=== PATIENT | female | born 1960 | race Caucasian/White ===

== ENCOUNTER → 2016-12-16 | Outpatient (CLI) | payer BC ==
--- NOTE | 2016-12-16 10:34 | MM ---
Reason for exam: screening (asymptomatic). Last mammogram was performed 1 year and 1 month ago. History: Patient is postmenopausal. Family history of premenopausal breast cancer in sister at age 46. Benign stereotactic core biopsy of the left breast, December 21, 2004. Took hormonal contraceptives for 2 years beginning at age 21. Physical Findings: A clinical breast exam by your physician is recommended on an annual basis and results should be correlated with mammographic findings. MG Screening Mammo w CAD Bilateral CC and MLO view(s) were taken. Prior study comparison: November 24, 2015, bilateral MG screening mammo w CAD. November 22, 2014, bilateral MG screening mammo w CAD. There are scattered fibroglandular densities. Finding: There are typically benign calcifications in the left breast. Previous mammotome biopsy in the left breast. No significant changes in finding since November 24, 2015 and November 22, 2014. ASSESSMENT: Benign, BI-RAD 2 RECOMMENDATION: Routine screening mammogram of both breasts in 1 year.
== END | disposition home or self-care (01) ==
LOC: RADMAMWWP 07:50
PROVIDERS: ATTEND Obstetrics & Gynecology
DX: Z12.31 Encounter for screening mammogram for malignant neoplasm of breast (principal)

== ENCOUNTER → 2018-01-12 | Outpatient (CLI) | payer BC ==
--- NOTE | 2018-01-13 10:43 | MM ---
Reason for exam: screening (asymptomatic). Last mammogram was performed 1 year and 1 month ago. History: Patient is postmenopausal. Family history of premenopausal breast cancer in sister at age 46. Benign stereotactic core biopsy of the left breast, December 21, 2004. Took hormonal contraceptives for 2 years beginning at age 21. Physical Findings: A clinical breast exam by your physician is recommended on an annual basis and results should be correlated with mammographic findings. MG Screening Mammo w CAD Bilateral CC and MLO view(s) were taken. Prior study comparison: December 16, 2016, bilateral MG screening mammo w CAD. November 24, 2015, bilateral MG screening mammo w CAD. The breast tissue is heterogeneously dense. This may lower the sensitivity of mammography. Previous mammotome biopsy in the left breast. No significant changes when compared with prior studies. ASSESSMENT: Benign, BI-RAD 2 RECOMMENDATION: Routine screening mammogram of both breasts in 1 year.
== END | disposition home or self-care (01) ==
LOC: RADMAMWWP 07:34
PROVIDERS: ATTEND Obstetrics & Gynecology
DX: Z12.31 Encounter for screening mammogram for malignant neoplasm of breast (principal)
CPT/HCPCS: 77067

== ENCOUNTER → 2019-04-27 | Outpatient (CLI) | payer BC ==
[2019-04-27 09:32] LABS: ALT 57 U/L (9-52); AST 40 U/L (14-36); African American GFR (CKD) >90 (>60 ml/min/1.73 sqM); Albumin 4.5 g/dL (3.5-5.0); Alkaline Phosphatase 97 U/L (38-126); Anion Gap 8 mmol/L; Blood Urea Nitrogen 15 mg/dL (7-17); Carbon Dioxide 28 mmol/L (22-30); Chloride 105 mmol/L (98-107); Cholesterol 198 mg/dL (<200); Glucose 105 mg/dL (74-99); HDL Cholesterol 63 mg/dL (40-60); LDL Cholesterol,Calculated 108 mg/dL (0-99); Potassium 4.8 mmol/L (3.5-5.1); Sodium 141 mmol/L (137-145); Total Bilirubin 0.5 mg/dL (0.2-1.3); Total Protein 7.5 g/dL (6.3-8.2); Triglycerides 133 mg/dL (<150)
[2019-04-27 09:34] LABS: HCT 41.7 % (34.0-46.0); HGB 14.1 gm/dL (11.4-16.0); MCH 31.1 pg (25.0-35.0); MCHC 33.8 g/dL (31.0-37.0); MCV 92.1 fL (80.0-100.0); Mean Platelet Volume 5.5; Platelet Count 229 k/uL (150-450); RBC 4.53 m/uL (3.80-5.40); RDW 12.5 % (11.5-15.5)
[2019-04-27 09:48] LABS: T4, Free (Free Thyroxine) 0.99 ng/dL (0.78-2.19)
--- NOTE | 2019-04-27 10:03 | BD ---
EXAMINATION TYPE: Axial Bone Density DATE OF EXAM: 04/27/2019 COMPARISON: Prior DEXA bone scan April 19, 2016 CLINICAL HISTORY: Postmenopausal female, disorder of bone. Height: 65 inches Weight: 198 pounds FRAX RISK QUESTIONS: Alcohol (3 or more units per day): no Family History (Parent hip fracture): no Glucocorticoids (More than 3mos): no (Ex: prednisone, prednisolone, methylprednisolone, dexamethasone, and hydrocortisone). History of Fracture in Adulthood: no Secondary Osteoporosis: 1. Type 1 Diabetes: no 2. Hyperthyroidism: no 3. Menopause before 45: no 4. Malnutrition: no 5. Chronic liver disease: no Rheumatoid Arthritis: no Current Tobacco Use: no RISK FACTORS HISTORY OF: Surgery to Spine/Hip(right/left)/Wrist (right/left): l5-s1 When: 2010 Family History of Osteoporosis: no Active: yes Diet low in dairy products/other sources of calcium: yes Postmenopausal woman: hysterectomy 2009 Take estrogen and/or progesterone medications: estrogen supplement How lon MEDICATIONS: Additional History: EXAM MEASUREMENTS: Bone mineral densitometry was performed using the [employer] System. Bone mineral density as measured about the Lumbar spine is: ----- L1-L4(G/cm2): 1.023 T Score Values are as follows: ----- L2: -0.9 ----- L3: -1.4 ----- L4: -1.2 ----- L1-L4: -1.3 Bone mineral density has: increased 0.9 % since study of: 04.19.2016 Bone mineral density about the R hip (g/cm2): 0.769 Bone mineral density about the L hip (g/cm2): 0.852 T Score values are as follows: -----R Neck: -1.9 -----L Neck: -1.3 -----R Total: -0.8 -----L Total: -0.8 Bone mineral density has: decreased -2.2 % since study of: 04.19.2016 IMPRESSION: Osteopenia (T Score between -2.5 and -1). There is slightly increased risk of fracture and the patient may be considered for treatment. Re-Screen 2-5 years. NOTE: T-SCORE=SD OF THE YOUNG ADULT MEAN.
== END | disposition home or self-care (01) ==
LOC: RADBDWWP 07:59
PROVIDERS: ATTEND Obstetrics & Gynecology
DX: M85.80 Other specified disorders of bone density and structure, unspecified site (principal); Z13.220 Encounter for screening for lipoid disorders; Z13.1 Encounter for screening for diabetes mellitus; I10 Essential (primary) hypertension
CPT/HCPCS: 36415; 77080; 80053; 80061; 84439; 84443; 84479; 85027

== ENCOUNTER → 2019-04-30 | Outpatient (CLI) | payer BC ==
--- NOTE | 2019-05-02 09:20 | MM ---
Reason for exam: screening (asymptomatic). Last mammogram was performed 1 year and 4 months ago. History: Patient is postmenopausal. Family history of premenopausal breast cancer in sister at age 46. Benign stereotactic core biopsy of the left breast, December 21, 2004. Took hormonal contraceptives for 2 years beginning at age 21. Physical Findings: A clinical breast exam by your physician is recommended on an annual basis and results should be correlated with mammographic findings. MG 3D Screening Mammo W/Cad Bilateral CC and MLO view(s) were taken. Prior study comparison: January 12, 2018, bilateral MG screening mammo w CAD. December 16, 2016, bilateral MG screening mammo w CAD. There are scattered fibroglandular densities. Previous mammotome biopsy in the left breast. No significant changes when compared with prior studies. ASSESSMENT: Negative, BI-RAD 1 RECOMMENDATION: Routine screening mammogram of both breasts in 1 year.
== END | disposition home or self-care (01) ==
LOC: RADMAMWWP 16:33
PROVIDERS: ATTEND Obstetrics & Gynecology
DX: Z12.31 Encounter for screening mammogram for malignant neoplasm of breast (principal); Z80.3 Family history of malignant neoplasm of breast
CPT/HCPCS: 77063; 77067

== ENCOUNTER → 2019-07-05 | Outpatient (CLI) | payer BC ==
--- NOTE | 2019-07-05 13:10 | CT ---
EXAMINATION TYPE: CT abdomen pelvis wo con DATE OF EXAM: 07/05/2019 COMPARISON: None HISTORY: 58-year-old female Bilateral flank pain, history of stones CT DLP: 1024.9 mGycm. Automated exposure control for dose reduction was used. TECHNIQUE: Contiguous axial scanning of the abdomen and pelvis without IV contrast. Coronal and sagit hernan reconstructions performed. FINDINGS: Heart normal size without pericardial effusion. Some stringy atelectasis at the left base without ple ural effusion. Small hiatal hernia. Liver is borderline in size at 17.5 cm. Otherwise, noncontrast appearance of the liver, gallbladder, adrenal glands, spleen, and pancreas shows no gross abnormal mobility. Clustered calcifications central lower pole left kidney with aggregate dimension 8 x 6 mm. A couple a dditional adjacent calculi measure up to 3 mm. Punctate 2 mm nonobstructive left lower pole renal calculus. Possible tiny 2 mm distal right ureteral calculus, axial image 139. No hydronephrosis. No dilated small bowel, free fluid, or free air. No mesenteric or retroperitoneal lymphadenopathy. Normal appendix. Mild to moderate stool burden. No pericolonic inflammatory change. Bladder is partially distended. Uterus surgically absent. Neither ovary clearly identified. Multiple pelvic phleboliths. Bulging laxity of the levator ani musculature. No abnormal fluid collection in th e pelvis or pelvic lymphadenopathy. Bones: Stellate sclerotic focus right side of the sacrum measures 1.4 cm with overall benign appearan ce, probable bone island. Similar smaller 9 mm focus right iliac bone. Mild facet arthropathy lower l umbar spine. IMPRESSION: 1. Clustered, centrally located nonobstructive right lower pole renal calculi with aggregate dimensi on up to 8 x 6 cm and a couple additional adjacent nonobstructive 3 mm right renal calculi. 2. Difficult to exclude a tiny punctate 2 mm distal right ureteral calculus. No hydronephrosis. 3. Additional tiny 2 mm nonobstructive left lower pole renal calculus. 4. Pelvic floor relaxation. Status post hysterectomy.
== END | disposition home or self-care (01) ==
LOC: RADCTMAIN 12:35
PROVIDERS: ATTEND Urology
DX: N20.0 Calculus of kidney (principal); N81.89 Other female genital prolapse; Z90.710 Acquired absence of both cervix and uterus
CPT/HCPCS: 74176

== ENCOUNTER → 2019-07-16 | Outpatient (CLI) | payer BC ==
[2019-07-16 14:15] LABS: Basophils % (A) 1 %; Eosinophils # (A) 0.1 k/uL (0-0.7); Eosinophils % (A) 2 %; HCT 42.5 % (34.0-46.0); HGB 14.1 gm/dL (11.4-16.0); Lymphocytes # (A) 1.5 k/uL (1.0-4.8); Lymphocytes % (A) 27 %; MCH 30.6 pg (25.0-35.0); MCHC 33.1 g/dL (31.0-37.0); MCV 92.4 fL (80.0-100.0); Mean Platelet Volume 7.2; Monocytes # (A) 0.3 k/uL (0-1.0); Monocytes % (A) 6 %; Neutrophils # (A) 3.4 k/uL (1.3-7.7); Neutrophils % (A) 62 %; Platelet Count 239 k/uL (150-450); RDW 12.3 % (11.5-15.5); WBC 5.5 k/uL (3.8-10.6)
[2019-07-16 14:22] LABS: African American GFR (CKD) >90 (>60 ml/min/1.73 sqM); Anion Gap 8 mmol/L; Blood Urea Nitrogen 19 mg/dL (7-17); Calcium 10.5 mg/dL (8.4-10.2); Carbon Dioxide 31 mmol/L (22-30); Chloride 102 mmol/L (98-107); Glucose 99 mg/dL (74-99); Non-African American GFR(CKD) >90 (>60 ml/min/1.73 sqM); Potassium 4.8 mmol/L (3.5-5.1); Sodium 141 mmol/L (137-145)
== END | disposition home or self-care (01) ==
LOC: LABPAT 12:16
PROVIDERS: ATTEND Urology
DX: Z01.812 Encounter for preprocedural laboratory examination (principal); N20.0 Calculus of kidney
CPT/HCPCS: 36415; 80048; 85025

== ENCOUNTER 2019-07-23 09:32 | Day surgery (SDC) | payer BC ==
[2019-07-18 14:42] VITALS: BMI 31.9
--- NOTE | 2019-07-18 19:53 | P.GSHP ---
History of Present Illness H&P Date: 07/18/19 Chief Complaint: Flank pain The patient is a 58-year-old white female with a history of urolithiasis. She has recently experienced bilateral flank pain. She has undergone ESWL on 3 prior occasions. A recent computed tomography scan shows a cluster of calculi within the right lower pole, measuring 6 x 8 mm in size. 2 tiny left renal calculi are seen. She has elected to undergo right ESWL. - Constitutional Constitutional: Denies chills, Denies fever - Gastrointestinal Gastrointestinal: Reports nausea, Denies vomiting - Genitourinary (Female) Genitourinary: Reports flank pain, Reports kidney stones, Denies hematuria Past Medical History Past Medical History: GERD/Reflux, Hyperlipidemia, Hypertension Additional Past Medical History / Comment(s): IBS History of Any Multi-Drug Resistant Organisms: None Reported Past Surgical History: Back Surgery, Section, Hysterectomy Past Anesthesia/Blood Transfusion Reactions: No Reported Reaction Additional Past Anesthesia/Blood Transfusion Reaction / Comment(s): sister has hard time coming out of anesthesia Smoking Status: Never smoker - Past Family History Mother Family Medical History: Cancer Additional Family Medical History / Comment(s): lung cancer Sister(s) Family Medical History: Cancer Additional Family Medical History / Comment(s): breast cancer Medications and Allergies Home Medications Medication Instructions Recorded Confirmed Type Lisinopril 5 mg PO DAILY 10/02/15 07/18/19 History Pantoprazole Sodium 40 mg PO DAILY 10/02/15 07/18/19 History Pravastatin Sodium [Pravachol] 20 mg PO HS 10/02/15 07/18/19 History Calcium Carbonate [Calcium] 600 mg PO DAILY 07/18/19 07/18/19 History Cholecalciferol (Vitamin D3) 5,000 unit PO DAILY 07/18/19 07/18/19 History [Vitamin D3] Lubiprostone [Amitiza] 24 mcg PO BID 07/18/19 07/18/19 History Multivitamins, Thera [Multivitamin 1 tab PO DAILY 07/18/19 07/18/19 History (formulary)] Soy Isofla/Blk Cohosh/Mag Bark 155 mg PO DAILY 07/18/19 07/18/19 History [Estroven 155 mg Capsule] Vitamin C/Biotin [Hair, Skin and 1 tab PO DAILY 07/18/19 07/18/19 History Nails] Allergies Allergy/AdvReac Type Severity Reaction Status Date / Time No Known Allergies Allergy Verified 07/18/19 14:31 Surgical - Exam - General well developed, well nourished, no distress - Respiratory normal respiratory effort - Abdomen Abdomen: soft, non tender, no guarding, no rigid, no rebound - Psychiatric oriented to time, oriented to person, oriented to place, speech is normal, memory intact Results - Imaging CT scan - abdomen: report reviewed, image reviewed Assessment and Plan (1) Calculus of kidney Status: Acute Code(s): N20.0 - CALCULUS OF KIDNEY SNOMED Code(s): 88076921 Plan: Right extracorporal shockwave lithotripsy (ESWL). The procedure has been review ed with the patient. She understands potential risks to include anesthesia, renal contusion, perinephric hematoma, injury to adjacent organs, treatment failure, incomplete fragmentation, and Steinstrasse. She is aware of the possible need for secondary treatments. She was also offered the options of observation and ureteroscopy with laser lithotripsy.
[~2019-07-23 09:32] MED LIST: LACTATED RINGERS 1,000 ML IV SCH; LIDOCAINE 1% 20 ML VIAL (10MG/ML) FOR IV START INTRADERMA PRN
--- NOTE | 2019-07-23 09:58 | XR ---
EXAMINATION TYPE: XR KUB DATE OF EXAM: 07/23/2019 HISTORY: Pain Comparison: None.Single KUB is submitted for interpretation. Findings: Right renal calculi: 6 mm calculus overlying the lower pole of the right kidney. Right ureteral calculi: None Visualized. Left renal calculi: None Visualized. Left ureteral calculi: None Visualized. Pelvic calcifications: None Visualized. Bowel gas pattern is unremarkable. No free air. No mass effects. IMPRESSION: 1. Right-sided nephrolithiasis.
[2019-07-23 10:05] VITALS: RESP 16; TEMP 99.6
[2019-07-23] MEDS ORDERED: PROPOFOL 10 MG/ML 20 ML VIAL IV ONE (10:52)
[2019-07-23] MEDS ORDERED: fentaNYL (PF) 50 MCG/ML 2 ML AMP ONE (10:52)
[2019-07-23] MEDS ORDERED: MIDAZOLAM 2 MG/2 ML VIAL ONE (10:52)
[2019-07-23] MEDS ORDERED: KETAMINE 10 MG/ML 20 ML VIAL ONE (10:52)
--- NOTE | 2019-07-23 11:27 | P.OP ---
Date of Procedure: 07/23/19 Preoperative Diagnosis: Right renal calculi Postoperative Diagnosis: Same Procedure(s) Performed: Right extracorporal shockwave lithotripsy (ESWL) Anesthesia: MAC Surgeon: Diaz Marin Estimated Blood Loss (ml): 0 IV fluids (ml): 250 Pathology: none sent Condition: stable Disposition: PACU Indications for Procedure: The patient is a 58-year-old white female with a history of urolithiasis. She has recently experienced bilateral flank pain. She has undergone ESWL on 3 prior occasions. A recent computed tomography scan shows a cluster of calculi within the right lower pole, measuring 6 x 8 mm in size. 2 tiny left renal calculi are seen. She has elected to undergo right ESWL. Operative Findings: Excellent fragmentation of the calculus is noted to occur. Description of Procedure: The patient was taken to the operating room and placed on the Dornier Compact Delta II lithotripter in the supine position. The calculus was seen on biplanar fluoroscopy. Once the patient was properly positioned and sedated, lithotripsy was performed. The energy level was gradually increased per protocol, to an energy level of 5. After 100 shocks were administered, a 2 minute pause was instituted per protocol. A total of 2000 shocks were given at a rate of 80 shocks per minute. Fluoroscopy was utilized at a minimum to ensure proper positioning and determine the treatment status. The calculus changed in appearance, consistent with fragmentation, and in fact the calculus could no longer be seen upon completion of the procedure. The patient tolerated the procedure well was taken to the recovery room in stable condition. Instructions were given to strain the urine, and the patient will follow-up within one week.
[2019-07-23 11:52] VITALS: BP 137/80; PULSE 66
== END 2019-07-23 12:09 | disposition home or self-care (01) ==
LOC: ORWHC2ENDO 09:32
PROVIDERS: ATTEND Urology
DX: N20.0 Calculus of kidney (principal); I10 Essential (primary) hypertension; K21.9 Gastro-esophageal reflux disease without esophagitis; E78.5 Hyperlipidemia, unspecified; Z87.19 Personal history of other diseases of the digestive system; Z98.890 Other specified postprocedural states; Z90.710 Acquired absence of both cervix and uterus; Z80.1 Family history of malignant neoplasm of trachea, bronchus and lung; Z80.3 Family history of malignant neoplasm of breast; Z79.899 Other long term (current) drug therapy
CPT/HCPCS: 74018; 50590; J2250; J3010; J2704

== ENCOUNTER → 2019-07-30 | Outpatient (CLI) | payer BC ==
--- NOTE | 2019-07-30 13:09 | XR ---
EXAMINATION TYPE: XR abdomen 1V DATE OF EXAM: 07/30/2019 10:54 AM CLINICAL HISTORY: Right-sided lithotripsy. History of right-sided nephrolithiasis. TECHNIQUE: Single supine KUB image of the abdomen is obtained. COMPARISON: 07/23/2019. FINDINGS: There are 3 punctate calculi overlying the right renal shadow measuring up to 2 mm. No calc preet are definitively seen overlying the left renal shadow. Atherosclerosis overlies the left hemisacr um. Phleboliths are noted within the low pelvis. Osseous structures are grossly intact. Moderate degr ee colonic fecal stasis in the right hemicolon. IMPRESSION: 3 punctate right renal calculi measuring up to 2 mm. No calculi are seen on the left.
== END | disposition home or self-care (01) ==
LOC: RADXRMAIN 10:45
PROVIDERS: ATTEND Urology
DX: N20.0 Calculus of kidney (principal); E83.52 Hypercalcemia; Z98.890 Other specified postprocedural states
CPT/HCPCS: 36415; 74018; 82310; 83970

== ENCOUNTER → 2020-05-02 | Outpatient (CLI) | payer BC ==
--- NOTE | 2020-05-05 08:31 | MM ---
Reason for exam: screening (asymptomatic). Last mammogram was performed 1 year ago. History: Patient is postmenopausal. Family history of premenopausal breast cancer in sister at age 46. Benign stereotactic core biopsy of the left breast, December 21, 2004. Took hormonal contraceptives for 2 years beginning at age 21. Physical Findings: A clinical breast exam by your physician is recommended on an annual basis and results should be correlated with mammographic findings. MG 3D Screening Mammo W/Cad Bilateral CC and MLO view(s) were taken. Prior study comparison: April 30, 2019, bilateral MG 3d screening mammo w/cad. January 12, 2018, bilateral MG screening mammo w CAD. There are scattered fibroglandular densities. Benign appearing calcifications in the left breast. No significant changes when compared with prior studies. ASSESSMENT: Benign, BI-RAD 2 RECOMMENDATION: Routine screening mammogram of both breasts in 1 year.
== END | disposition home or self-care (01) ==
LOC: RADMAMWWP 09:52
PROVIDERS: ATTEND Obstetrics & Gynecology
DX: Z12.31 Encounter for screening mammogram for malignant neoplasm of breast (principal)
CPT/HCPCS: 77063; 77067

== ENCOUNTER → 2021-07-23 | Outpatient (CLI) | payer BC ==
--- NOTE | 2021-07-23 16:28 | BD ---
EXAMINATION TYPE: Axial Bone Density DATE OF EXAM: 07/23/2021 COMPARISON: NONE CLINICAL HISTORY: Height: 65 Weight: 211.5 FRAX RISK QUESTIONS: Alcohol (3 or more units per day): no Family History (Parent hip fracture): no Glucocorticoids (More than 3mos): no (Ex: prednisone, prednisolone, methylprednisolone, dexamethasone, and hydrocortisone). History of Fracture in Adulthood: no Secondary Osteoporosis: 1. Type 1 Diabetes: no 2. Hyperthyroidism: no 3. Menopause before 45: no 4. Malnutrition: no 5. Chronic liver disease: no Rheumatoid Arthritis: no Current Tobacco Use: no RISK FACTORS HISTORY OF: Surgery to Spine/Hip(right/left)/Wrist (right/left): no Family History of Osteoporosis: no Active: yes Diet low in dairy products/other sources of calcium: yes Postmenopausal woman: yes Lost more than 2 inches in height since high school: no MEDICATIONS: lisinopril, pravastatin, omeprazole, vitamins Additional History: EXAM MEASUREMENTS: Bone mineral densitometry was performed using the [employer]FKW System. Bone mineral density as measured about the Lumbar spine is: ----- L1-L4(G/cm2): 1.028 T Score Values are as follows: ----- L2: -13 ----- L3: -1.5 ----- L4: -1.2 ----- L1-L4: -1.3 Bone mineral density has: decreased -1.8 % since study of: 04.27.2019 Bone mineral density about the R hip (g/cm2): 0.790 Bone mineral density about the L hip (g/cm2): 0.829 T Score values are as follows: -----R Neck: -1.8 -----L Neck: -1.5 -----R Total: -0.9 -----L Total: -1.0 Bone mineral density has: decreased -2.1 % since study of: 04.27.2019 IMPRESSION: Osteopenia (T Score between -2.5 and -1). There is slightly increased risk of fracture and the patient may be considered for treatment. Re-Screen 2-5 years. NOTE: T-SCORE=SD OF THE YOUNG ADULT MEAN.
== END | disposition home or self-care (01) ==
LOC: RADBDWWP 14:55
PROVIDERS: ATTEND Obstetrics & Gynecology
DX: M85.89 Other specified disorders of bone density and structure, multiple sites (principal); Z78.0 Asymptomatic menopausal state
CPT/HCPCS: 77080

== ENCOUNTER → 2021-09-01 | Outpatient (CLI) | payer BC ==
--- NOTE | 2021-09-01 10:33 | MM ---
Reason for exam: screening (asymptomatic). Last mammogram was performed 1 year and 4 months ago. History: Patient is postmenopausal. Family history of premenopausal breast cancer in sister at age 46. Benign stereotactic core biopsy of the left breast, December 21, 2004. Took hormonal contraceptives for 2 years beginning at age 21. Physical Findings: A clinical breast exam by your physician is recommended on an annual basis and results should be correlated with mammographic findings. MG 3D Screening Mammo W/Cad Bilateral CC and MLO view(s) were taken. Prior study comparison: May 02, 2020, bilateral MG 3d screening mammo w/cad. April 30, 2019, bilateral MG 3d screening mammo w/cad. There are scattered fibroglandular densities. There are benign appearing round calcifications in the left breast. Previous mammotome biopsy in the left breast. There is no discrete abnormality. ASSESSMENT: Benign, BI-RAD 2 RECOMMENDATION: Routine screening mammogram of both breasts in 1 year.
== END | disposition home or self-care (01) ==
LOC: RADMAMWWP 07:44
PROVIDERS: ATTEND Obstetrics & Gynecology
DX: Z12.31 Encounter for screening mammogram for malignant neoplasm of breast (principal); Z78.0 Asymptomatic menopausal state; Z80.3 Family history of malignant neoplasm of breast
CPT/HCPCS: 77063; 77067

== ENCOUNTER 2021-10-16 11:59 | Day surgery (SDC) | payer BC ==
[2021-10-14 13:10] VITALS: BMI 33.3
[~2021-10-16 11:59] MED LIST changes: +DEXAMETHASONE SOD PHOSPHATE 4 MG/ML 1 ML VIAL IV ONE; +HYDROmorphone 0.5 MG/0.5 ML SYRINGE IVP PRN; -LIDOCAINE 1% 20 ML VIAL (10MG/ML) FOR IV START INTRADERMA PRN; +MIDAZOLAM 2 MG/2 ML VIAL IV PRN; +ONDANSETRON 4 MG/2 ML VIAL IVP ONE; +SCOPOLAMINE 1 MG/72 HR PATCH TRANSDERM ONE
[2021-10-16] MEDS ORDERED: MIDAZOLAM 2 MG/2 ML VIAL IVP ONE (12:49)
[2021-10-16] MEDS ORDERED: fentaNYL (PF) 50 MCG/ML 2 ML AMP IVP ONE (12:49)
[2021-10-16] MEDS ORDERED: fentaNYL (PF) 50 MCG/ML 2 ML AMP ONE (13:30)
[2021-10-16] MEDS ORDERED: MIDAZOLAM 2 MG/2 ML VIAL ONE (13:30)
[2021-10-16] MEDS ORDERED: LIDOCAINE 1% INJ 10MG/ML (20 ML MDV) ONE (13:30)
[2021-10-16] MEDS ORDERED: ePHEDrine 50 MG/ML 1 ML VIAL ONE (13:30)
[2021-10-16] MEDS ORDERED: PROPOFOL 10 MG/ML 20 ML VIAL IV ONE (13:30)
[2021-10-16] MEDS ORDERED: ROPIVACAINE 5 MG/ML 30 ML VIAL ONE (13:30)
[2021-10-16] MEDS ORDERED: SODIUM CHLORIDE 0.9% (PF) 10 ML VIAL ONE (13:30)
--- NOTE | 2021-10-16 13:58 | P.ANPRN ---
Procedure Note - Anesthesia - Nerve Block Performed Left Popliteal Single Time Out Performed: Yes (1248) Date of Procedure: 10/16/21 Procedure Start Time: 12:49 Procedure Stop Time: 12:54 Location of Patient: PreOp Indication: Acute Post-Operative Pain, Requested by Surgeon Specifically requested for management of pain by DrAbhishek: Casey Jarquin Sedation Type: Sedate with meaningful contact maintained Preparation: Sterile Prep Position: Supine Catheter: None Needle Types: Pajunk Needle Gauge: 21 Ultrasound used to visualize needle placement: Yes Ultrasound used to observe medication spread: Yes Injectate: 0.5% Ropivacaine (see comment for volume) (15cc+ 10cc nacl pf) Blood Aspirated: No Pain Paresthesia on Injection Noted: No Resistance on Injection: Normal Image Stored and Saved: Yes Events: Uneventful and Well Tolerated
--- NOTE | 2021-10-16 13:59 | P.ANPRN ---
Procedure Note - Anesthesia - Nerve Block Performed Left Adductor Canal Single Time Out Performed: Yes (1248) Date of Procedure: 10/16/21 Procedure Start Time: 12:55 Procedure Stop Time: 12:59 Location of Patient: PreOp Indication: Acute Post-Operative Pain, Requested by Surgeon Specifically requested for management of pain by DrAbhishek: Casey Jarquin Sedation Type: Sedate with meaningful contact maintained Preparation: Sterile Prep Position: Supine Catheter: None Needle Types: Pajunk Needle Gauge: 21 Ultrasound used to visualize needle placement: Yes Ultrasound used to observe medication spread: Yes Injectate: 0.5% Ropivacaine (see comment for volume) (15cc + 10cc nacl pf) Blood Aspirated: No Pain Paresthesia on Injection Noted: No Resistance on Injection: Normal Image Stored and Saved: Yes Events: Uneventful and Well Tolerated
[2021-10-16] MEDS ORDERED: HEPARIN SODIUM 1,000 UN/ML (10ML VL) MISCELLANE ONE (14:24)
[2021-10-16] MEDS ORDERED: LACTATED RINGERS 1,000 ML IV ONE (14:25)
--- NOTE | 2021-10-16 15:03 | FL ---
EXAMINATION TYPE: FL guidance operating room, XR ankle Limited LT DATE OF EXAM: 10/16/2021 CLINICAL HISTORY: Left ankle pain, possible fracture. Intraoperative limited views left ankle. TECHNIQUE: Fluoroscopy. COMPARISON: None. FINDINGS: Fluoroscopic guidance was provided during open reduction internal fixation procedure perfo rmed by Dr. Jarquin. A total of 1 seconds of fluoroscopic time was utilized during the procedure and 1 spot intraoperative image is acquired. Single limits acquired shows metallic wire overlying the distal tibia. No subsequent imaging performe d. IMPRESSION: As Above.
[2021-10-16 15:19] VITALS: TEMP 97.1
[2021-10-16 15:28] VITALS: PULSE 92
--- NOTE | 2021-10-16 15:35 | P.OP ---
Date of Procedure: 10/16/21 Preoperative Diagnosis: Bone cyst left talus Postoperative Diagnosis: Same Procedure(s) Performed: Debridement and curettage of bone cyst with allograft filling left talus Implants: Arthrex morcellized allograft Anesthesia: MENDOZAA Surgeon: Casey Jarquin Estimated Blood Loss (ml): 63 (Actual loss during surgery was 3 mL. However 60 mL of marrow aspirate was taken from the left tibia) Pathology: none sent Condition: stable Disposition: PACU Operative Findings: Large, deep osteochondral defect with cyst formation medial shoulder left talus Description of Procedure: Prior to the patient being brought to the operating room anesthesia administered nerve block on the left lower extremity. The patient was then brought into the operative room placed on table supine position. Timeout was taken to confirm correct patient identifiers, correct laterality of surgery, and correct procedure. When all staff in the room were in agreement with the timeout, the patient was induced and placed under general anesthesia. A well-padded tourniquet was placed on the left thigh and then the left foot was prepped and draped usual manner to the knee. Using fluoroscopic visualization, the distal tibia was identified superior to the ankle joint. A small stab incision was made to the skin on the anterior lateral surface of the same area. It was bluntly dissected to bone. The trocar with cannula was then impacted into the medullary canal of the tibia. Where approximately 60 mL of bone marrow aspirate was obtained. The aspirate was prepped and passed off the table to be concentrated by the Arthrex Jason system. After the marrow aspiration was completed, the leg was exsanguinated with an Esmarch bandage, the knee slightly flexed and then the tourniquet inflated to 250 mmHg. Attention was directed over the anterior aspect of the ankle, where a linear incision was made between the tibialis anterior and extensor hallucis longus tendons. The incision was deepened down to the subcutaneous layer careful to identify, avoid, and retract any neurovascular structures and cauterize any bleeding vessels. Blunt dissection was carried down to the extensor retinaculum which was incised along the entire length of the skin incision between the tibialis anterior and extensor hallucis longus tendons. Then blunt dissection was continued through the adipose layer down to the ankle joint capsule. The capsule was incised anteriorly along the length of the original skin incision and then the tissue was reflected to expose the medial aspect of the ankle joint. The medial aspect of the talus with a lesion was present was well v isualized. Large pins were placed in the distal tibia as well as into the talus while the ankle was plantarflexed. Then the distractor was placed over the wires and then used to open up the joint to allow further access to the lesion. Once that was completed a combination of curettes was used to completely remove the diseased articular cartilage and a portion of the subchondral bone. Next a rotary bur was used to remove more subchondral bone and get to the full depth of the lesion. A curette was then used the depth of the lesion to remove any abnormal bone. And then a small K wires used to fenestrate the surfaces. Then the ankle joint was thoroughly irrigated with antibiotic saline. The distractor was then released to allow normal range of motion of the ankle so that any fluid and any particles from the debridement could be fully flush from the area. Once that was completed the distractor was reengaged open up the joint again. The concentrated bone marrow aspirate was then brought back to the table. At that point morselized bone and soft tissue matrix were mixed with a full cc of the bone marrow aspirate in place into a syringe area and once fully next it was slowly placed into the lesion the talus and the lesion was filled until just short of the surface of the remaining cartilage. The area was then smoothed and any excess removed. Then fibrin glue was placed over the material and allowed to sit for 5 minutes to lock it in place. Once completed the distractor was released and the pins removed. The ankle was taken through range of motion and there was no crepitus noted in the material stayed in place within the talus. The ankle joint capsule was then closed with 0 Vicryl. Extensor retinaculum was closed with 2-0 Vicryl. Subcu closure done with 4-0 Monocryl. And skin closure done with jaspreet. An Arthrex jumpstart dressing was placed over the incision. A bulky dry dressings applied to the left ankle. The tourniquet was released and capillary refill return to all digits on the left foot. The patient was then placed in a well-padded, well molded plaster posterior mold/sugar tong splint. Ankle was held at 90 until the splint was dried. Then anesthesia was reversed and the patient was taken recovery with vital signs stable.
[2021-10-16 15:55] VITALS: BP 137/86; RESP 20
== END 2021-10-16 16:19 | disposition home or self-care (01) ==
LOC: OR 11:59
PROVIDERS: ATTEND Podiatrist
DX: M85.672 Other cyst of bone, left ankle and foot (principal); M93.272 Osteochondritis dissecans, left ankle and joints of left foot; M25.372 Other instability, left ankle; I10 Essential (primary) hypertension; E78.5 Hyperlipidemia, unspecified; K30 Functional dyspepsia; Z79.899 Other long term (current) drug therapy; Z97.3 Presence of spectacles and contact lenses; Z98.891 History of uterine scar from previous surgery; Z90.710 Acquired absence of both cervix and uterus; Z98.890 Other specified postprocedural states; Z82.49 Family history of ischemic heart disease and other diseases of the circulatory system
CPT/HCPCS: 64447; 64445; 76942; 73610; 28102; C1713; J2250; J1100; J0690; J2405; J2001; J3010; J1644; J2795; J2704

== ENCOUNTER → 2022-09-29 | Outpatient (CLI) | payer BC ==
--- NOTE | 2022-09-30 08:58 | MM ---
Reason for Exam: Screening (asymptomatic). Last screening mammogram was performed 12 month(s) ago. Patient History: Menarche at age 13. First Full-Term at age 23. Left ovary removed at age 49. Right ovary removed at age 49. Hysterectomy at age 49. Postmenopausal. Patient has history of breast feeding. Hormonal Contraceptives for 2 years from age 21 until age 24. 12/21/2004, Benign Stereotactic Core Biopsy on the left side. Sister had breast cancer, age 46. Sister had breast cancer at or over age 50. Risk Values: Karly 5 year model risk: 7.1%. NCI Lifetime model risk: 29.8%. Prior Study Comparison: 11/22/2014 Bilateral Screening Mammogram, [facility]. 11/24/2015 Bilateral Screening Mammogram, [facility] 12/16/2016 Bilateral Screening Mammogram, [facility]. 01/12/2018 Bilateral Screening Mammogram, [facility]. 04/30/2019 Bilateral Screening Mammogram, [facility]. 05/02/2020 Bilateral Screening Mammogram, [facility]. 09/01/2021 Bilateral Screening Mammogram, [facility]. Tissue Density: There are scattered fibroglandular densities. Findings: Analyzed By CAD. Left biopsy clip. There is no suspicious group of microcalcifications or new suspicious mass in either breast. Overall Assessment: Negative, BI-RAD 1 Management: Screening Mammogram of both breasts in 1 year. A clinical breast exam by your physician is recommended on an annual basis and results should be correlated with mammographic findings. [facility] will attempt to contact patient to return for supplemental views and ultrasound if indicated. Electronically signed and approved by: Braxton Torres DO
== END | disposition home or self-care (01) ==
LOC: RADMAMWWP 07:16
PROVIDERS: ATTEND Obstetrics & Gynecology
DX: Z12.31 Encounter for screening mammogram for malignant neoplasm of breast (principal); Z78.0 Asymptomatic menopausal state; Z80.3 Family history of malignant neoplasm of breast
CPT/HCPCS: 77063; 77067

== ENCOUNTER → 2023-10-03 | Outpatient (CLI) | payer BC ==
--- NOTE | 2023-10-04 08:43 | MM ---
Reason for Exam: Screening (asymptomatic). Last mammogram was performed 1 year(s) and 1 month(s) ago. Patient History: Menarche at age 13. First Full-Term at age 23. Left ovary removed at age 49. Right ovary removed at age 49. Hysterectomy at age 49. Postmenopausal. Patient has history of breast feeding. Hormonal Contraceptives for 2 years from age 21 until age 24. 12/21/2004, Benign Stereotactic Core Biopsy on the left side. Sister had breast cancer, age 46. Sister had breast cancer at or over age 50. Risk Values: Karly 5 year model risk: 7.3%. NCI Lifetime model risk: 29.1%. Prior Study Comparison: 05/02/2020 Bilateral Screening Mammogram, [facility]. 09/01/2021 Bilateral Screening Mammogram, [facility]. 09/29/2022 Bilateral MG 3D screening mammo w/cad, [facility]. Tissue Density: There are scattered areas of fibroglandular density. Findings: Analyzed By CAD. There is no suspicious group of microcalcifications or new suspicious mass in either breast. Overall Assessment: Benign, BI-RAD 2 Management: Screening Mammogram of both breasts in 1 year. . Patient should continue monthly self-breast exams. A clinical breast exam by your physician is recommended on an annual basis. This exam should not preclude additional follow-up of suspicious palpable abnormalities. Note on Karly scores and lifetime risk: 1. A Karly score greater than 3% is considered moderate risk. If this is the case, consider specialist referral to assess eligibility for a risk reducing agent. 2. If overall lifetime risk for the development of breast cancer is 20% or higher, the patient may qualify for future screening with alternating mammogram and breast MRI. Electronically signed and approved by: Alo Dunne M.D. Radiologis
--- NOTE | 2023-10-05 18:14 | BD ---
EXAMINATION TYPE: Axial Bone Density DATE OF EXAM: 10/03/2023 CLINICAL HISTORY: 63 years old Female. ICD-10 CODE: M85.88 OT DISRD OF BONE DENSITY Height: 64.5 Weight: 202.0 FRAX RISK QUESTIONS: Alcohol (3 or more units per day): no Family History (Parent hip fracture): no Glucocorticoids (More than 3mos): no History of Fracture in Adulthood: no Secondary Osteoporosis: 1. Type 1 Diabetes: no 2. Hyperthyroidism: no 3. Menopause before 45: no 4. Malnutrition: no 5. Chronic liver disease: no Rheumatoid Arthritis: no Current Tobacco Use: no RISK FACTORS HISTORY OF: Hip Fracture (Right/Left): no Spine Fracture: no History of Wrist Fracture: no Surgery to Spine/Hip(right/left)/Wrist (right/left): L5-S1 disk removed MEDICATIONS: Thyroid Medications: no Osteoporosis Medications: no EXAM MEASUREMENTS: Bone mineral densitometry was performed using the [email or web address] System. Bone mineral density as measured about the Lumbar spine is: ----- L1-L4(G/cm2): 1.039 T Score Values are as follows: ----- L1: -2.1 ----- L2: -1.7 ----- L3: -1.4 ----- L4: -0.2 ----- L1-L4: -1.2 Z Score Values are as follows: ----- L1: -1.6 ----- L2: -1.2 ----- L3: -0.9 ----- L4: 0.3 ----- L1-L4: -1.2` Bone mineral density has: increased 1.1 % since study of: 07/23/21 Bone mineral density about the R hip (g/cm2): 0.835 Bone mineral density about the L hip (g/cm2): 0.912 T Score values are as follows: -----R Neck: -2.0 -----L Neck: -1.6 -----R Total: -1.4 -----L Total: -0.8 Z Score values are as follows: -----R Neck: -1.2 -----L Neck: -0.8 -----R Total: -1.0 -----L Total: -0.4 Bone mineral density has: decreased -1.9 % since study of: 07/23/2021 FRAX%s: The graph provided illustrates a 9.4 % chance for a major osteoporotic fx and a 1.2% chance f or the hips probability for fx in 10 years time. IMPRESSION: Osteopenia (T Score between -2.5 and -1). There is slightly increased risk of fracture and the patient may be considered for treatment. Re-Screen 2-5 years. NOTE: T-SCORE=SD OF THE YOUNG ADULT MEAN.
== END | disposition home or self-care (01) ==
LOC: RADBDWWP 07:32
PROVIDERS: ATTEND Family Medicine
DX: Z12.31 Encounter for screening mammogram for malignant neoplasm of breast (principal); M85.89 Other specified disorders of bone density and structure, multiple sites; Z80.3 Family history of malignant neoplasm of breast; Z78.0 Asymptomatic menopausal state
CPT/HCPCS: 77063; 77067; 77080

== ENCOUNTER → 2024-10-08 | Outpatient (CLI) | payer BC ==
--- NOTE | 2024-10-08 13:42 | MM ---
Reason for Exam: Screening (asymptomatic). Last screening mammogram was performed 12 month(s) ago. Patient History: Menarche at age 13. First Full-Term at age 23. Left ovary removed at age 49. Right ovary removed at age 49. Hysterectomy at age 49. Postmenopausal. Patient has history of breast feeding. Hormonal Contraceptives for 2 years from age 21 until age 24. 12/21/2004, Benign Stereotactic Core Biopsy on the left side. Sister had breast cancer, age 46. Sister had breast cancer at or over age 50. Risk Values: Karly 5 year model risk: 7.5%. NCI Lifetime model risk: 28.3%. Prior Study Comparison: 09/01/2021 Bilateral Screening Mammogram, [facility]. 09/29/2022 Bilateral MG 3D screening mammo w/cad, [facility]. 10/03/2023 Bilateral MG 3D screening mammo w/cad, [facility]. Tissue Density: There are scattered areas of fibroglandular density. Findings: Analyzed By CAD. On the left CC view, there is a centrally located area of asymmetric density middle to posterior depth which is more pronounced from prior study. On the CC view, a microclip projecting just adjacent. The density is not clearly identified on the MLO view. Possible superimposition shadow but for which further evaluation is recommended. Otherwise, no significant change. Overall Assessment: Incomplete: need additional imaging evaluation, BI-RAD 0 Management: Special View Mammogram of the left breast. To include spot 3-D CC, 3-D CC rolled, and 3-D lateral views. [facility] will attempt to contact patient to return for supplemental views and ultrasound if indicated. [facility], , 10/08/2024 1:39 PM. Electronically signed and approved by: Abdullahi Cespedes M.D. Radiologist
== END | disposition home or self-care (01) ==
LOC: RADMAMWWP 11:24
PROVIDERS: ATTEND Obstetrics & Gynecology
DX: Z12.31 Encounter for screening mammogram for malignant neoplasm of breast (principal); R92.323 Mammographic fibroglandular density, bilateral breasts; Z78.0 Asymptomatic menopausal state; Z80.3 Family history of malignant neoplasm of breast; Z92.0 Personal history of contraception
CPT/HCPCS: 77063; 77067

== ENCOUNTER → 2024-10-10 | Outpatient (CLI) | payer BC ==
--- NOTE | 2024-10-10 08:24 | MM ---
Reason for Exam: Additional evaluation requested from abnormal screening. Last screening mammogram was performed less than 1 month ago. Patient History: Menarche at age 13. First Full-Term at age 23. Left ovary removed at age 49. Right ovary removed at age 49. Hysterectomy at age 49. Postmenopausal. Patient has history of breast feeding. Hormonal Contraceptives for 2 years from age 21 until age 24. 12/21/2004, Benign Stereotactic Core Biopsy on the left side. Sister had breast cancer, age 46. Sister had breast cancer at or over age 50. Risk Values: Patrick 5 year model risk: 7.5%. NCI Lifetime model risk: 28.3%. Prior Study Comparison: 09/29/2022 Bilateral MG 3D screening mammo w/cad, [facility]. 10/03/2023 Bilateral MG 3D screening mammo w/cad, [facility]. 10/08/2024 Bilateral MG 3D screening mammo w/cad, [facility]. Tissue Density: Left: There are scattered areas of fibroglandular density. Findings: Analyzed By CAD. On additional views, the central nodular asymmetric density completely disperses compatible with benign superimposition shadow. No significant change from priors. Overall Assessment: Benign, BI-RAD 2 Management: Screening Mammogram of both breasts in 1 year. SEE NOTE BELOW IN REGARDS TO THE PATIENT'S INCREASED 5 YEAR PATRICK SCORE AND INCREASED LIFETIME RISK SCORE. Results were given to the patient verbally at the time of exam. Patient should continue monthly self-breast exams. A clinical breast exam by your physician is recommended on an annual basis. This exam should not preclude additional follow-up of suspicious palpable abnormalities. Note on Patrick scores and lifetime risk: 1. A Patrick score greater than 3% is considered moderate risk. If this is the case, consider specialist referral to assess eligibility for a risk reducing agent. 2. If overall lifetime risk for the development of breast cancer is 20% or higher, the patient may qualify for future screening with alternating mammogram and breast MRI. [facility], , 10/10/2024 8:20 AM. Electronically signed and approved by: Abdullahi Cespedes M.D. Radiologist
== END | disposition home or self-care (01) ==
LOC: RADMAMWWP 08:00
PROVIDERS: ATTEND Obstetrics & Gynecology
DX: R92.8 Other abnormal and inconclusive findings on diagnostic imaging of breast (principal); R92.322 Mammographic fibroglandular density, left breast; Z78.0 Asymptomatic menopausal state; Z80.3 Family history of malignant neoplasm of breast; Z92.0 Personal history of contraception
CPT/HCPCS: 77061; 77065